=== PATIENT | female | born 1960 | race Two or more races ===

== ENCOUNTER 2022-12-25 15:17 | Emergency (ER) | payer BC ==
[~2022-12-25] VITALS: Ht 172.7 cm; Wt 85.5 kg
[2022-12-25 15:24] VITALS: BP 109/94; PULSE 72; RESP 18; TEMP 97.2; O2SAT 95
[2022-12-25] MEDS ORDERED: OXYC-150 PO ×2 (16:32→18:07)
[2022-12-25] MEDS ORDERED: HYDR-3973 PO (18:15)
== END 2022-12-25 18:09 | disposition home or self-care (01) ==
LOC: ER 15:18
DX: S42.201A Unspecified fracture of upper end of right humerus, initial encounter for closed fracture (principal); M25.511 Pain in right shoulder; Z79.899 Other long term (current) drug therapy; W19.XXXA Unspecified fall, initial encounter; Y93.89 Activity, other specified; Y92.89 Other specified places as the place of occurrence of the external cause; Y99.8 Other external cause status
CPT/HCPCS: 99284